=== PATIENT | male | born 2000 | race African-American/Black ===

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

== ENCOUNTER 2021-07-20 21:59 | Emergency (ER) | payer BC, OTHER | END 2021-07-20 22:13 | disposition home or self-care (01) | LOC: ERS 21:59 | DX: R59.0 Localized enlarged lymph nodes (principal) | CPT/HCPCS: 99283 ==

== ENCOUNTER 2022-07-19 12:58 | Emergency (ER) | payer BC, OTHER ==
[2022-07-19] MEDS ORDERED: Boostrix 0.5 ML (Tdap) VIAL (>/=7 yrs of age) ONE (13:23)
[2022-07-19] MEDS ORDERED: Acetaminophen 325 MG TAB ONE (13:23)
== END 2022-07-19 13:25 | disposition home or self-care (01) ==
LOC: ERS 12:58
DX: S61.210A Laceration without foreign body of right index finger without damage to nail, initial encounter (principal); Z23 Encounter for immunization; W26.0XXA Contact with knife, initial encounter
CPT/HCPCS: 12001; 90471; 90715